=== PATIENT | female | born 1995 | race Caucasian/White ===

== ENCOUNTER 2023-10-14 05:37 | Observation (INO) | payer OTHER ==
[2023-10-14] MEDS ORDERED: Sodium Chloride 0.9% 2.5 ML Syringe FLUSH PRN (06:00)
[2023-10-14] MEDS ORDERED: Sodium Chloride 0.9% 10 ML Syringe FLUSH PRN (06:00)
[2023-10-14] MEDS ORDERED: Sodium Chloride 0.9% 20 ML SDV IV PRN (06:00)
[2023-10-14] MEDS: Lactated Ringers 1,000 ML IV SCH ×4 (06:14→19:09)
[2023-10-14 06:45] LABS: BASOPHILS ABSOLUTE AUTO 0.05 K/uL (0.00-0.20); BASOPHILS PERCENT AUTO 0.5 % (0.0-1.0); EOSINOPHILS ABSOLUTE AUTO 0.06 K/uL (0.00-0.45); EOSINOPHILS PERCENT AUTO 0.6 % (0.0-6.0); HEMATOCRIT 33.5 % (37.0-47.0); HEMOGLOBIN 11.7 g/dL (12.0-16.0); IMMATURE GRAN ABSOLUTE AUTO 0.33 K/uL (0.00-0.05); IMMATURE GRAN PERCENT AUTO 3.5 % (0.0-0.4); LYMPHOCYTES ABSOLUTE AUTO 2.04 K/uL (1.00-4.80); LYMPHOCYTES PERCENT AUTO 21.4 % (24.0-44.0); MEAN CORPUSCULAR HGB CONC 34.9 g/dL (32.0-36.0); MEAN CORPUSCULAR VOLUME 88.6 fL (83.0-99.0); MEAN PLATELET VOLUME 10.1 fL (9.4-12.3); MONOCYTES ABSOLUTE AUTO 0.76 K/uL (0.00-0.80); NEUTROPHILS ABSOLUTE AUTO 6.31 K/uL (1.80-7.70); PLATELET COUNT,PLT 212 K/uL (150-400); RED BLOOD CELL COUNT 3.78 M/uL (4.10-5.30); WHITE BLOOD CELL COUNT,WBC 9.55 K/uL (3.9-11.3)
[2023-10-14] MEDS ORDERED: Betamethasone Acetate/Betamethasone Sod Phosphate 6 MG/1 ML MDV IM ONE (06:50)
[2023-10-14 07:10] LABS: INR < 0.93 (0.86-1.11)
[2023-10-14 07:54] LABS: BILIRUBIN,URINE NEGATIVE (NEGATIVE); COLOR,URINE YELLOW; GLUCOSE,URINE NEGATIVE (NEGATIVE); KETONES,URINE NEGATIVE (NEGATIVE); LEUKOCYTE ESTERASE,URINE NEGATIVE (NEGATIVE); NITRITE,URINE NEGATIVE (NEGATIVE); OCCULT BLOOD,URINE LARGE (NEGATIVE); PROTEIN,URINE NEGATIVE (NEGATIVE); UROBILINOGEN,URINE 0.2 EU/dL (<2.0)
[2023-10-14 07:56] LABS: APPEARANCE,URINE HAZY
[2023-10-14 08:33] LABS: CANDIDA DNA PROBE NEGATIVE (NEGATIVE); GARDNERELLA DNA PROBE POSITIVE (NEGATIVE); TRICHOMONAS DNA PROBE NEGATIVE (NEGATIVE)
[2023-10-14 09:12] LABS: C. TRACHOMATIS BY PCR NOT DETECTED; N. GONORRHOEAE BY PCR NOT DETECTED
[2023-10-14] MEDS: Clindamycin HCl 150 MG Cap PO SCH ×2 (11:01→19:00)
[2023-10-14] MEDS ORDERED: hydrOXYzine Pamoate 25 MG Cap PO PRN (19:02)
[2023-10-14] MEDS ORDERED: Lactated Ringers 1,000 ML IV SCH (19:15)
[2023-10-15] MEDS: Lactated Ringers 1,000 ML IV SCH (01:45)
[2023-10-15] MEDS: Clindamycin HCl 150 MG Cap PO SCH ×2 (02:44→10:31)
[2023-10-15 05:50] LABS: HEMOGLOBIN 10.9 g/dL (12.0-16.0); MEAN CORPUSCULAR HEMOGLOBIN 31.2 pg (28.0-32.0); MEAN CORPUSCULAR HGB CONC 35.2 g/dL (32.0-36.0); MEAN CORPUSCULAR VOLUME 88.8 fL (83.0-99.0); MEAN PLATELET VOLUME 10.3 fL (9.4-12.3); PLATELET COUNT,PLT 198 K/uL (150-400); RED BLOOD CELL COUNT 3.49 M/uL (4.10-5.30); WHITE BLOOD CELL COUNT,WBC 12.36 K/uL (3.9-11.3)
[2023-10-15 06:01] LABS: FIBRINOGEN 393 mg/dL (187-446); INR < 0.93 (0.86-1.11); PTT,PARTIAL THROMBOPLSTIN TIME 28.3 SEC (23.9-30.7)
[2023-10-15 06:32] LABS: GROUP B STREP BY PCR NEGATIVE (NEGATIVE)
[2023-10-15] MEDS ORDERED: Betamethasone Acetate/Betamethasone Sod Phosphate 6 MG/1 ML MDV IM ONE (09:06)
== END 2023-10-15 10:35 | disposition home or self-care (01) ==
LOC: MW.OBCHECK 05:37 → MW.OB 05:38 → MW.OBCHECK 15:00
PROVIDERS: ADMIT Obstetrics & Gynecology; ATTEND Obstetrics & Gynecology
DX: O46.93 Antepartum hemorrhage, unspecified, third trimester (principal); O99.343 Other mental disorders complicating pregnancy, third trimester; F41.9 Anxiety disorder, unspecified; F32.A Depression, unspecified; Z3A.34 34 weeks gestation of pregnancy; Z79.899 Other long term (current) drug therapy
CPT/HCPCS: 36415; 59025; 76815; 81003; 85025; 85027; 85384; 85610; 85730; 86850; 86900; 86901; 87480; 87491; 87510; 87591; 87653; 87660; A9270; J0702; J7120

== ENCOUNTER 2023-11-27 20:04 | Inpatient (IN) | payer OTHER ==
[2023-11-27] MEDS ORDERED: Water For Irrigation,Sterile 1,000 ML Container IRR PRN (20:13)
[2023-11-27] MEDS ORDERED: Sodium Chloride 0.9% 10 ML Syringe FLUSH PRN (20:13)
[2023-11-27] MEDS ORDERED: Sodium Chloride 0.9% 2.5 ML Syringe FLUSH PRN (20:13)
[2023-11-27] MEDS ORDERED: Methylergonovine 0.2 MG/1 ML Amp IM PRN (20:13)
[2023-11-27] MEDS ORDERED: Tranexamic Acid IN NACL,ISO-OS 1,000 MG in Premix Bag 1 BAG IV PRN ×2 (20:13)
[2023-11-27] MEDS ORDERED: Sodium Chloride 0.9% 20 ML SDV IV PRN (20:13)
[2023-11-27] MEDS ORDERED: Misoprostol 25 MCG (1/4 of 100 MCG) Tab VAG PRN ×2 (20:13)
[2023-11-27] MEDS ORDERED: Misoprostol 200 MCG Tab PO PRN (20:13)
[2023-11-27] MEDS ORDERED: Lidocaine 1% 50 ML MDV INJECT PRN (20:13)
[2023-11-27] MEDS ORDERED: Terbutaline 1 MG/ML SDV SUBCUT PRN (20:13)
[2023-11-27] MEDS ORDERED: Carboprost Tromethamine 250 MCG/1 mL Vial IM PRN (20:13)
[2023-11-27] MEDS ORDERED: Oxytocin/0.9 % Sodium Chloride 30 UNIT/500 ML BAG IV SCH ×2 (20:15)
[2023-11-27 21:17] LABS: HEMATOCRIT 35.1 % (37.0-47.0); HEMOGLOBIN 12.3 g/dL (12.0-16.0); MEAN CORPUSCULAR VOLUME 88.4 fL (83.0-99.0); MEAN PLATELET VOLUME 10.5 fL (9.4-12.3); PLATELET COUNT,PLT 217 K/uL (150-400); RED BLOOD CELL COUNT 3.97 M/uL (4.10-5.30); WHITE BLOOD CELL COUNT,WBC 10.04 K/uL (3.9-11.3)
[2023-11-27] MEDS ORDERED: ePHEDrine 50 MG/ML SDV IVPUSH PRN ×2 (22:46)
[2023-11-27] MEDS ORDERED: Ropivacaine HCl/PF 400 MG in Premix Bag 1 BAG EPIDUR SCH (23:00)
[2023-11-28] MEDS: Nalbuphine 10 MG/0.5 ML Syringe IVPUSH PRN ×2 (02:49→06:18)
[2023-11-28] MEDS: Lactated Ringers 1,000 ML IV SCH ×2 (03:49→17:55)
[2023-11-28] MEDS: Ondansetron 4 MG/2 ML SDV IVPUSH PRN ×2 (05:22→11:43)
[2023-11-28] MEDS ORDERED: fentaNYL 100 MCG/2 ML SDV ONE ×4 (13:10→23:01)
[2023-11-28] MEDS ORDERED: Bupivacaine 0.25% 10 ML SDV ONE (13:10)
[2023-11-28] MEDS ORDERED: Azithromycin 500 MG in Sodium Chloride 0.9% 250 ML IV ONE (18:15)
[2023-11-28] MEDS ORDERED: Sodium Chloride 0.9% 2.5 ML Syringe FLUSH PRN (18:15)
[2023-11-28] MEDS ORDERED: Oxytocin/0.9 % Sodium Chloride 30 UNIT/500 ML BAG IV SCH (18:15)
[2023-11-28] MEDS ORDERED: Sodium Chloride 0.9% 10 ML Syringe FLUSH PRN (18:15)
[2023-11-28] MEDS ORDERED: Lactated Ringers 1,000 ML IV SCH (18:15)
[2023-11-28] MEDS ORDERED: ceFAZolin 2 GM in Sodium Chloride 0.9% 50 ML IV ONE (18:15)
[2023-11-28] MEDS ORDERED: Sodium Chloride 0.9% 20 ML SDV IV PRN (18:15)
[2023-11-28] MEDS ORDERED: Bupivacaine 0.5% 10 ML SDV ONE (18:22)
[2023-11-28] MEDS ORDERED: Ondansetron 4 MG/2 ML SDV ONE ×4 (18:23→23:42)
[2023-11-28] MEDS ORDERED: ceFAZolin 1 GM Vial ONE ×2 (18:26→22:30)
[2023-11-28] MEDS ORDERED: Ropivacaine 0.5% 5 MG/ML 30 ML SDV ONE (18:26)
[2023-11-28] MEDS ORDERED: Dexamethasone 4 MG/ML 5 ML MDV ONE (18:26)
[2023-11-28] MEDS ORDERED: Ketorolac 30 MG/ML SDV ONE (18:26)
[2023-11-28] MEDS ORDERED: dexmedeTOMIDine HCl 200 MCG/2 ML SDV ONE (18:26)
[2023-11-28] MEDS ORDERED: Water For Injection, Sterile 20 ML ONE (18:26)
[2023-11-28] MEDS ORDERED: Azithromycin 500 MG Vial ONE (18:31)
[2023-11-28] MEDS ORDERED: Morphine PF 10 MG/10 ML SDV ONE (18:36)
[2023-11-28] MEDS ORDERED: Phenylephrine HCl 0.5 MG/5 ML AMP ONE ×5 (18:46→22:56)
[2023-11-28] MEDS ORDERED: Oxytocin 10 Units/1 ML SDV ONE ×2 (18:56→20:19)
[2023-11-28] MEDS ORDERED: fentaNYL 50 MCG/ML SDV IVPUSH PRN (19:08)
[2023-11-28] MEDS ORDERED: fentaNYL 100 MCG/2 ML SDV IVPUSH PRN (19:08)
[2023-11-28] MEDS ORDERED: Naloxone 0.4 MG/ML SDV IVPUSH PRN (19:08)
[2023-11-28] MEDS ORDERED: Acetaminophen/oxyCODONE 325-5 MG Tab PO PRN (19:08)
[2023-11-28] MEDS ORDERED: Morphine 2 MG/ML SYRINGE IVPUSH PRN (19:08)
[2023-11-28] MEDS ORDERED: Metoclopramide 10 MG/2 ML SDV IVPUSH PRN (19:08)
[2023-11-28] MEDS ORDERED: Ondansetron 4 MG/2 ML SDV IVPUSH PRN ×2 (19:08)
[2023-11-28] MEDS ORDERED: droPERidol 5 MG/2 ML SDV IVPUSH PRN (19:08)
[2023-11-28] MEDS ORDERED: ePHEDrine 50 MG/ML SDV IVPUSH PRN (19:08)
[2023-11-28] MEDS ORDERED: Albuterol 0.083% 2.5 MG/3 ML Neb Soln NEB PRN (19:08)
[2023-11-28] MEDS ORDERED: HYDROmorphone 1 MG/ML Syringe IVPUSH PRN (19:08)
[2023-11-28] MEDS ORDERED: diphenhydrAMINE 50 MG/ML SDV IVPUSH PRN (19:08)
[2023-11-28] MEDS ORDERED: Ketorolac 30 MG/ML SDV IVPUSH SCH (20:00)
[2023-11-28] MEDS: Phenylephrine HCl 0.5 MG/5 ML AMP IVPUSH PRN ×2 (20:15→20:46)
[2023-11-28] MEDS ORDERED: Tranexamic Acid 1,000 MG/10 ML Vial ONE ×2 (20:19→20:49)
[2023-11-28] MEDS ORDERED: Calcium Chloride 10% 1 GM/10 ML Syringe ONE ×2 (20:19→23:09)
[2023-11-28] MEDS ORDERED: ePHEDrine 50 MG/ML SDV ONE (20:19)
[2023-11-28] MEDS ORDERED: Phenylephrine 1% 10 MG/ML SDV ONE (20:49)
[2023-11-28] MEDS ORDERED: Carboprost Tromethamine 250 MCG/1 mL Vial IM PRN (20:56)
[2023-11-28 21:18] LABS: HEMATOCRIT 22.2 % (37.0-47.0); HEMOGLOBIN 8.1 g/dL (12.0-16.0); MEAN CORPUSCULAR HEMOGLOBIN 31.6 pg (28.0-32.0); MEAN CORPUSCULAR HGB CONC 36.5 g/dL (32.0-36.0); MEAN CORPUSCULAR VOLUME 86.7 fL (83.0-99.0); MEAN PLATELET VOLUME 10.4 fL (9.4-12.3); PLATELET COUNT,PLT 221 K/uL (150-400); RED BLOOD CELL COUNT 2.56 M/uL (4.10-5.30); WHITE BLOOD CELL COUNT,WBC 21.23 K/uL (3.9-11.3)
[2023-11-28] MEDS ORDERED: Misoprostol 200 MCG Tab RECTAL PRN (21:26)
[2023-11-28] MEDS ORDERED: Calcium Gluconate 10% 1 GM/10 ML SDV ONE (21:31)
[2023-11-28 21:40] LABS: A/G RATIO 0.8 (0.9-1.6); ALBUMIN 1.6 g/dL (3.4-5.0); BILIRUBIN TOTAL 0.4 mg/dL (0.2-1.0); CARBON DIOXIDE,CO2 23.1 mmol/L (21.0-32.0); CREATININE 0.8 mg/dL (0.6-1.0); EST CRCL DRUG DOSING (CG) 87.38 mL/min; POTASSIUM,K 4.1 mmol/L (3.5-5.1); PROTEIN TOTAL,TP 3.6 g/dL (6.4-8.2)
[2023-11-28] MEDS ORDERED: Oxytocin/0.9 % Sodium Chloride 30 UNIT/500 ML BAG ONE (21:41)
[2023-11-28] MEDS ORDERED: Acetaminophen 1,000 MG in Premix Bag 1 BAG IV SCH (22:00)
[2023-11-28 22:01] LABS: PTT,PARTIAL THROMBOPLSTIN TIME 29.9 SEC (23.9-30.7)
[2023-11-28] MEDS ORDERED: Rocuronium Bromide 50 MG/5 ML Syringe ONE ×2 (22:05→23:00)
[2023-11-28] MEDS ORDERED: Propofol 200 MG/20 ML SDV ONE ×2 (22:06→23:29)
[2023-11-28] MEDS ORDERED: propofoL 50 ML ONE (22:09)
[2023-11-28] MEDS ORDERED: Sugammadex Sodium 200 MG/2 ML VIAL ONE (22:12)
[2023-11-28] MEDS ORDERED: Albumin 5% 250 ML ONE (22:37)
[2023-11-28] MEDS ORDERED: Methylergonovine 0.2 MG/1 ML Amp ONE (23:10)
[2023-11-29] MEDS ORDERED: Metoclopramide 10 MG/2 ML SDV ONE (00:12)
[2023-11-29] MEDS ORDERED: diphenhydrAMINE 50 MG/ML SDV IVPUSH PRN (01:15)
[2023-11-29] MEDS ORDERED: Lanolin 100% Cream 7 GM Tube TOP PRN (01:15)
[2023-11-29] MEDS ORDERED: Temazepam 15 MG Cap PO PRN (01:15)
[2023-11-29] MEDS ORDERED: Pantoprazole 40 MG in Sodium Chloride 0.9% 10 ML IVPUSH SCH (01:15)
[2023-11-29] MEDS ORDERED: Famotidine 20 MG Tab PO PRN (01:15)
[2023-11-29] MEDS ORDERED: Bisacodyl 10 MG Supp RECTAL PRN (01:15)
[2023-11-29] MEDS ORDERED: Acetaminophen/oxyCODONE 325-5 MG Tab PO PRN (01:15)
[2023-11-29] MEDS ORDERED: Ondansetron 4 MG/2 ML SDV IVPUSH PRN (01:15)
[2023-11-29 02:18] LABS: HEMATOCRIT 27.8 % (37.0-47.0); HEMOGLOBIN 10.2 g/dL (12.0-16.0); MEAN CORPUSCULAR HEMOGLOBIN 31.2 pg (28.0-32.0); MEAN CORPUSCULAR HGB CONC 36.7 g/dL (32.0-36.0); PLATELET COUNT,PLT 55 K/uL (150-400); RED BLOOD CELL COUNT 3.27 M/uL (4.10-5.30); WHITE BLOOD CELL COUNT,WBC 16.06 K/uL (3.9-11.3)
[2023-11-29 02:48] LABS: INR 1.11 (0.86-1.11); PTT,PARTIAL THROMBOPLSTIN TIME 31.4 SEC (23.9-30.7)
[2023-11-29] MEDS: Lactated Ringers 1,000 ML IV SCH ×2 (03:10→11:39)
[2023-11-29] MEDS ORDERED: Melatonin 3 MG Tab PO PRN (03:34)
[2023-11-29] MEDS ORDERED: Midazolam 1 MG/ML 2 ML SDV IVPUSH PRN (03:36)
[2023-11-29] MEDS: Ferrous Sulfate 325 MG Tab PO SCH ×2 (06:12→15:54)
[2023-11-29] MEDS: Simethicone 80 MG Tab.Chew PO SCH ×3 (06:12→20:35)
[2023-11-29] MEDS: Pantoprazole 40 MG in Sodium Chloride 0.9% 10 ML IVPUSH SCH ×2 (06:21→07:56)
[2023-11-29] MEDS ORDERED: ceFAZolin 2 GM in Sodium Chloride 0.9% 50 ML IV ONE (07:00)
[2023-11-29 07:08] LABS: BASOPHILS ABSOLUTE AUTO 0.03 K/uL (0.00-0.20); BASOPHILS PERCENT AUTO 0.2 % (0.0-1.0); IMMATURE GRAN ABSOLUTE AUTO 0.24 K/uL (0.00-0.05); IMMATURE GRAN PERCENT AUTO 1.7 % (0.0-0.4); LYMPHOCYTES ABSOLUTE AUTO 1.52 K/uL (1.00-4.80); LYMPHOCYTES PERCENT AUTO 10.5 % (24.0-44.0); MEAN PLATELET VOLUME 10.9 fL (9.4-12.3); MONOCYTES PERCENT AUTO 8.3 % (0.0-8.0); NEUTROPHILS ABSOLUTE AUTO 11.43 K/uL (1.80-7.70); NEUTROPHILS PERCENT AUTO 79.3 % (41.0-71.0); RED BLOOD CELL COUNT 2.92 M/uL (4.10-5.30); WHITE BLOOD CELL COUNT,WBC 14.42 K/uL (3.9-11.3)
[2023-11-29 08:06] LABS: HEMATOCRIT 24.5 % (37.0-47.0); HEMOGLOBIN 8.6 g/dL (12.0-16.0); MEAN CORPUSCULAR HEMOGLOBIN 28.8 pg (28.0-32.0); MEAN CORPUSCULAR HGB CONC 34.7 g/dL (32.0-36.0); MEAN CORPUSCULAR VOLUME 83.1 fL (83.0-99.0)
[2023-11-29 08:07] LABS: PLATELET COUNT,PLT 58 K/uL (150-400)
[2023-11-29] MEDS: Docusate Sodium 100 MG Cap PO SCH ×2 (09:59→20:35)
[2023-11-29] MEDS: Acetaminophen/oxyCODONE 325-5 MG Tab PO PRN ×3 (12:21→20:36)
[2023-11-29] MEDS ORDERED: Furosemide 20 MG/2 ML VIAL IVPUSH ONE (15:06)
[2023-11-30] MEDS: Acetaminophen/oxyCODONE 325-5 MG Tab PO PRN ×6 (00:55→23:56)
[2023-11-30] MEDS: Simethicone 80 MG Tab.Chew PO SCH ×4 (04:20→21:55)
[2023-11-30] MEDS: Ferrous Sulfate 325 MG Tab PO SCH ×3 (05:51→21:55)
[2023-11-30 08:11] LABS: HEMATOCRIT 22.3 % (37.0-47.0); HEMOGLOBIN 8.2 g/dL (12.0-16.0); MEAN CORPUSCULAR HEMOGLOBIN 30.8 pg (28.0-32.0); MEAN CORPUSCULAR HGB CONC 36.8 g/dL (32.0-36.0); MEAN CORPUSCULAR VOLUME 83.8 fL (83.0-99.0); MEAN PLATELET VOLUME 10.2 fL (9.4-12.3); PLATELET COUNT,PLT 70 K/uL (150-400); RED BLOOD CELL COUNT 2.66 M/uL (4.10-5.30)
[2023-11-30] MEDS: Docusate Sodium 100 MG Cap PO SCH ×2 (10:21→21:55)
[2023-11-30] MEDS ORDERED: Cyclobenzaprine 10 MG Tab PO PRN (11:07)
[2023-12-01] MEDS: Acetaminophen/oxyCODONE 325-5 MG Tab PO PRN ×3 (04:43→23:24)
[2023-12-01 06:32] LABS: HEMATOCRIT 24.1 % (37.0-47.0); HEMOGLOBIN 8.4 g/dL (12.0-16.0); MEAN CORPUSCULAR HEMOGLOBIN 31.1 pg (28.0-32.0); MEAN CORPUSCULAR HGB CONC 34.9 g/dL (32.0-36.0); MEAN CORPUSCULAR VOLUME 89.3 fL (83.0-99.0); MEAN PLATELET VOLUME 10.1 fL (9.4-12.3); PLATELET COUNT,PLT 93 K/uL (150-400); WHITE BLOOD CELL COUNT,WBC 13.84 K/uL (3.9-11.3)
[2023-12-01] MEDS: Docusate Sodium 100 MG Cap PO SCH ×2 (08:38→21:17)
[2023-12-01] MEDS: Simethicone 80 MG Tab.Chew PO SCH ×4 (10:08→21:18)
[2023-12-01] MEDS: Ferrous Sulfate 325 MG Tab PO SCH ×4 (10:14→21:17)
[2023-12-01] MEDS: Pantoprazole 40 MG in Sodium Chloride 0.9% 10 ML IVPUSH SCH (19:45)
[2023-12-02] MEDS: Ferrous Sulfate 325 MG Tab PO SCH (05:08)
[2023-12-02] MEDS: Simethicone 80 MG Tab.Chew PO SCH ×2 (05:09→10:09)
[2023-12-02 06:17] LABS: HEMATOCRIT 25.6 % (37.0-47.0); HEMOGLOBIN 8.6 g/dL (12.0-16.0); MEAN CORPUSCULAR HEMOGLOBIN 30.8 pg (28.0-32.0); MEAN CORPUSCULAR HGB CONC 33.6 g/dL (32.0-36.0); MEAN CORPUSCULAR VOLUME 91.8 fL (83.0-99.0); NRBC ABSOLUTE 0.03 K/uL (0.00-0.02); NRBC PERCENT 0.3 /100WBC (0.0-0.2); PLATELET COUNT,PLT 153 K/uL (150-400); RED BLOOD CELL COUNT 2.79 M/uL (4.10-5.30); WHITE BLOOD CELL COUNT,WBC 9.84 K/uL (3.9-11.3)
[2023-12-02] MEDS: Pantoprazole 40 MG in Sodium Chloride 0.9% 10 ML IVPUSH SCH (07:36)
[2023-12-02] MEDS: Acetaminophen/oxyCODONE 325-5 MG Tab PO PRN (08:32)
[2023-12-02] MEDS: Docusate Sodium 100 MG Cap PO SCH (08:32)
== END 2023-12-02 13:51 | disposition home or self-care (01) | DRG 787 ==
LOC: MW.OBCHECK 20:04 → MW.OB 20:13 → OBSVTOIN 11-28 18:15 → MW.ICU 11-29 01:03 → MW.OB 11-29 10:59
PROVIDERS: ADMIT Obstetrics & Gynecology; ATTEND Obstetrics & Gynecology
PROC: 0W3R7ZZ Control Bleeding in Genitourinary Tract, Via Natural or Artificial Opening (ICD-10-PCS; 2023-11-28)
PROC: 0UT90ZL Resection of Uterus, Supracervical, Open Approach (ICD-10-PCS; 2023-11-28)
PROC: 3E0P7VZ Introduction of Hormone into Female Reproductive, Via Natural or Artificial Opening (ICD-10-PCS; 2023-11-28)
PROC: 3E033VJ Introduction of Other Hormone into Peripheral Vein, Percutaneous Approach (ICD-10-PCS; 2023-11-28)
PROC: 30233L1 Transfusion of Nonautologous Fresh Plasma into Peripheral Vein, Percutaneous Approach (ICD-10-PCS; 2023-11-28)
PROC: 30233N1 Transfusion of Nonautologous Red Blood Cells into Peripheral Vein, Percutaneous Approach (ICD-10-PCS; 2023-11-28)
PROC: 30233K1 Transfusion of Nonautologous Frozen Plasma into Peripheral Vein, Percutaneous Approach (ICD-10-PCS; 2023-11-28)
PROC: 3E033XZ Introduction of Vasopressor into Peripheral Vein, Percutaneous Approach (ICD-10-PCS; 2023-11-28)
PROC: 3E0R3BZ Introduction of Anesthetic Agent into Spinal Canal, Percutaneous Approach (ICD-10-PCS; 2023-11-28)
PROC: 00HU33Z Insertion of Infusion Device into Spinal Canal, Percutaneous Approach (ICD-10-PCS; 2023-11-28)
PROC: 10D00Z1 Extraction of Products of Conception, Low, Open Approach (ICD-10-PCS; principal; 2023-11-28 18:50)
PROC: 30233L1 Transfusion of Nonautologous Fresh Plasma into Peripheral Vein, Percutaneous Approach (ICD-10-PCS; 2023-11-29)
PROC: 30233N1 Transfusion of Nonautologous Red Blood Cells into Peripheral Vein, Percutaneous Approach (ICD-10-PCS; 2023-11-29)
DX: O48.0 Post-term pregnancy (principal); O72.1 Other immediate postpartum hemorrhage; O99.12 Other diseases of the blood and blood-forming organs and certain disorders involving the immune mechanism complicating childbirth; O72.3 Postpartum coagulation defects; D69.6 Thrombocytopenia, unspecified; O99.03 Anemia complicating the puerperium; D50.0 Iron deficiency anemia secondary to blood loss (chronic); O62.1 Secondary uterine inertia; O32.4XX0 Maternal care for high head at term, not applicable or unspecified; O26.53 Maternal hypotension syndrome, third trimester; Z3A.40 40 weeks gestation of pregnancy; Z37.0 Single live birth
CPT/HCPCS: 01962; 01967; 01968; 36415; 36430; 51702; 59899; 64488; 80053; 85025; 85027; 85384; 85610; 85730; 86592; 86850; 86900; 86901; 86920; A9270-GY; C9113; J0131; J0456; J0612; J0665; J0690; J1100; J1885; J1940; J2210; J2274; J2300; J2371; J2405; J2590; J2704; J2765; J2795; J3010; J3490; J7120; P9016; P9017; P9045

== ENCOUNTER 2023-12-17 22:18 | Observation (INO) | payer OTHER ==
[2023-12-17] MEDS ORDERED: Sodium Chloride 0.9% 2.5 ML Syringe FLUSH PRN (22:27)
[2023-12-17] MEDS ORDERED: Sodium Chloride 0.9% 10 ML Syringe FLUSH PRN (22:27)
[2023-12-17 22:42] LABS: BASOPHILS ABSOLUTE AUTO 0.03 K/uL (0.00-0.20); BASOPHILS PERCENT AUTO 0.4 % (0.0-1.0); EOSINOPHILS ABSOLUTE AUTO 0.14 K/uL (0.00-0.45); EOSINOPHILS PERCENT AUTO 1.9 % (0.0-6.0); HEMATOCRIT 32.1 % (37.0-47.0); HEMOGLOBIN 10.7 g/dL (12.0-16.0); IMMATURE GRAN ABSOLUTE AUTO 0.03 K/uL (0.00-0.05); IMMATURE GRAN PERCENT AUTO 0.4 % (0.0-0.4); LYMPHOCYTES ABSOLUTE AUTO 3.05 K/uL (1.00-4.80); LYMPHOCYTES PERCENT AUTO 40.7 % (24.0-44.0); MEAN CORPUSCULAR HEMOGLOBIN 31.1 pg (28.0-32.0); MEAN CORPUSCULAR HGB CONC 33.3 g/dL (32.0-36.0); MEAN CORPUSCULAR VOLUME 93.3 fL (83.0-99.0); MEAN PLATELET VOLUME 9.2 fL (9.4-12.3); NEUTROPHILS ABSOLUTE AUTO 3.65 K/uL (1.80-7.70); NEUTROPHILS PERCENT AUTO 48.6 % (41.0-71.0); PLATELET COUNT,PLT 471 K/uL (150-400); RED BLOOD CELL COUNT 3.44 M/uL (4.10-5.30)
[2023-12-17 22:56] LABS: INR 0.99 (0.86-1.11); PTT,PARTIAL THROMBOPLSTIN TIME 28.7 SEC (23.9-30.7)
[2023-12-17 23:03] LABS: ALBUMIN 3.2 g/dL (3.4-5.0); BILIRUBIN TOTAL 0.1 mg/dL (0.2-1.0); CALCIUM 8.7 mg/dL (8.5-10.1); CARBON DIOXIDE,CO2 24.5 mmol/L (21.0-32.0); EST CRCL DRUG DOSING (CG) 69.9 mL/min; POTASSIUM,K 3.8 mmol/L (3.5-5.1); PROTEIN TOTAL,TP 6.3 g/dL (6.4-8.2)
[2023-12-17] MEDS ORDERED: Ferric Subsulfate Topical Soln 8 GM (8 ML) Bottle ONE (23:14)
[2023-12-17] MEDS ORDERED: Tranexamic Acid 1,000 MG in Sodium Chloride 0.9% 100 ML IV ONE (23:36)
[2023-12-17] MEDS ORDERED: Sodium Chloride 0.9% 1,000 ML IV STA (23:43)
[2023-12-17] MEDS ORDERED: Promethazine 25 MG/ML SDV IM PRN (23:49)
[2023-12-17] MEDS ORDERED: Morphine 4 MG/ML Syringe IVPUSH PRN (23:49)
[2023-12-17] MEDS ORDERED: Acetaminophen/oxyCODONE 325-5 MG Tab PO PRN (23:49)
[2023-12-17] MEDS ORDERED: Ondansetron 4 MG/2 ML SDV IVPUSH PRN (23:49)
[2023-12-17 23:59] LABS: BASOPHILS ABSOLUTE AUTO 0.03 K/uL (0.00-0.20); BASOPHILS PERCENT AUTO 0.4 % (0.0-1.0); EOSINOPHILS ABSOLUTE AUTO 0.11 K/uL (0.00-0.45); EOSINOPHILS PERCENT AUTO 1.4 % (0.0-6.0); HEMATOCRIT 26.2 % (37.0-47.0); HEMOGLOBIN 8.7 g/dL (12.0-16.0); IMMATURE GRAN ABSOLUTE AUTO 0.03 K/uL (0.00-0.05); IMMATURE GRAN PERCENT AUTO 0.4 % (0.0-0.4); LYMPHOCYTES ABSOLUTE AUTO 2.61 K/uL (1.00-4.80); MEAN CORPUSCULAR HGB CONC 33.2 g/dL (32.0-36.0); MEAN CORPUSCULAR VOLUME 93.2 fL (83.0-99.0); MEAN PLATELET VOLUME 9.4 fL (9.4-12.3); MONOCYTES ABSOLUTE AUTO 0.64 K/uL (0.00-0.80); MONOCYTES PERCENT AUTO 8.1 % (0.0-8.0); NEUTROPHILS PERCENT AUTO 56.7 % (41.0-71.0); PLATELET COUNT,PLT 367 K/uL (150-400); RED BLOOD CELL COUNT 2.81 M/uL (4.10-5.30); WHITE BLOOD CELL COUNT,WBC 7.92 K/uL (3.9-11.3)
[2023-12-18] MEDS: Lactated Ringers 1,000 ML IV SCH ×2 (00:07→09:11)
[2023-12-18 00:28] LABS: INR 1.05 (0.86-1.11); PTT,PARTIAL THROMBOPLSTIN TIME 25.4 SEC (23.9-30.7)
[2023-12-18 06:05] LABS: BASOPHILS ABSOLUTE AUTO 0.03 K/uL (0.00-0.20); BASOPHILS PERCENT AUTO 0.5 % (0.0-1.0); EOSINOPHILS ABSOLUTE AUTO 0.07 K/uL (0.00-0.45); EOSINOPHILS PERCENT AUTO 1.1 % (0.0-6.0); HEMATOCRIT 24.4 % (37.0-47.0); IMMATURE GRAN ABSOLUTE AUTO 0.02 K/uL (0.00-0.05); IMMATURE GRAN PERCENT AUTO 0.3 % (0.0-0.4); LYMPHOCYTES ABSOLUTE AUTO 1.71 K/uL (1.00-4.80); LYMPHOCYTES PERCENT AUTO 27.1 % (24.0-44.0); MEAN CORPUSCULAR HEMOGLOBIN 30.5 pg (28.0-32.0); MEAN CORPUSCULAR HGB CONC 32.8 g/dL (32.0-36.0); MEAN CORPUSCULAR VOLUME 93.1 fL (83.0-99.0); MEAN PLATELET VOLUME 9.5 fL (9.4-12.3); MONOCYTES ABSOLUTE AUTO 0.34 K/uL (0.00-0.80); MONOCYTES PERCENT AUTO 5.4 % (0.0-8.0); NEUTROPHILS ABSOLUTE AUTO 4.15 K/uL (1.80-7.70); NEUTROPHILS PERCENT AUTO 65.6 % (41.0-71.0); PLATELET COUNT,PLT 314 K/uL (150-400); RED BLOOD CELL COUNT 2.62 M/uL (4.10-5.30); WHITE BLOOD CELL COUNT,WBC 6.32 K/uL (3.9-11.3)
[2023-12-18 06:27] LABS: CALCIUM 8.1 mg/dL (8.5-10.1); CARBON DIOXIDE,CO2 24.9 mmol/L (21.0-32.0); CREATININE 0.6 mg/dL (0.6-1.0); EST CRCL DRUG DOSING (CG) 116.5 mL/min; POTASSIUM,K 4.1 mmol/L (3.5-5.1)
[2023-12-18] MEDS ORDERED: Docusate Sodium 100 MG Cap PO SCH (09:00)
[2023-12-18] MEDS ORDERED: propofoL 50 ML ONE ×4 (12:10→14:52)
[2023-12-18] MEDS ORDERED: fentaNYL 100 MCG/2 ML SDV ONE ×2 (12:11→12:44)
[2023-12-18] MEDS ORDERED: Midazolam 1 MG/ML 2 ML SDV ONE (12:12)
[2023-12-18] MEDS ORDERED: ceFAZolin 1 GM Vial ONE (12:26)
[2023-12-18] MEDS ORDERED: Tranexamic Acid 1,000 MG/10 ML Vial ONE (12:26)
[2023-12-18] MEDS ORDERED: Calcium Chloride 10% 1 GM/10 ML Syringe ONE ×2 (13:14→14:07)
[2023-12-18 13:23] LABS: BASOPHILS ABSOLUTE AUTO 0.02 K/uL (0.00-0.20); BASOPHILS PERCENT AUTO 0.4 % (0.0-1.0); EOSINOPHILS ABSOLUTE AUTO 0.08 K/uL (0.00-0.45); EOSINOPHILS PERCENT AUTO 1.6 % (0.0-6.0); HEMATOCRIT 25.6 % (37.0-47.0); HEMOGLOBIN 8.4 g/dL (12.0-16.0); IMMATURE GRAN ABSOLUTE AUTO 0.03 K/uL (0.00-0.05); IMMATURE GRAN PERCENT AUTO 0.6 % (0.0-0.4); INR 1.16 (0.86-1.11); LYMPHOCYTES ABSOLUTE AUTO 1.86 K/uL (1.00-4.80); LYMPHOCYTES PERCENT AUTO 36.7 % (24.0-44.0); MEAN CORPUSCULAR HEMOGLOBIN 30.9 pg (28.0-32.0); MEAN CORPUSCULAR HGB CONC 32.8 g/dL (32.0-36.0); MEAN CORPUSCULAR VOLUME 94.1 fL (83.0-99.0); MEAN PLATELET VOLUME 9.4 fL (9.4-12.3); MONOCYTES ABSOLUTE AUTO 0.41 K/uL (0.00-0.80); MONOCYTES PERCENT AUTO 8.1 % (0.0-8.0); NEUTROPHILS ABSOLUTE AUTO 2.67 K/uL (1.80-7.70); NEUTROPHILS PERCENT AUTO 52.6 % (41.0-71.0); PLATELET COUNT,PLT 252 K/uL (150-400); PTT,PARTIAL THROMBOPLSTIN TIME 29.2 SEC (23.9-30.7); RED BLOOD CELL COUNT 2.72 M/uL (4.10-5.30); WHITE BLOOD CELL COUNT,WBC 5.07 K/uL (3.9-11.3)
[2023-12-18 13:53] LABS: A/G RATIO 0.9 (0.9-1.6); ALBUMIN 1.7 g/dL (3.4-5.0); BILIRUBIN TOTAL 0.1 mg/dL (0.2-1.0); CALCIUM 6.8 mg/dL (8.5-10.1); CARBON DIOXIDE,CO2 24.3 mmol/L (21.0-32.0); CREATININE 0.6 mg/dL (0.6-1.0); EST CRCL DRUG DOSING (CG) 116.5 mL/min; POTASSIUM,K 4.3 mmol/L (3.5-5.1); PROTEIN TOTAL,TP 3.6 g/dL (6.4-8.2)
[2023-12-18] MEDS ORDERED: Rocuronium Bromide 50 MG/5 ML Syringe ONE (14:32)
[2023-12-18 14:56] LABS: INR 1.17 (0.86-1.11); PTT,PARTIAL THROMBOPLSTIN TIME 28.2 SEC (23.9-30.7)
[2023-12-18 15:10] LABS: HEMATOCRIT 29.4 % (37.0-47.0); HEMOGLOBIN 10.2 g/dL (12.0-16.0)
== END 2023-12-18 16:00 ==
LOC: MW.ED 22:18 → MW.OB 23:45
PROVIDERS: ADMIT Obstetrics & Gynecology; ATTEND Obstetrics & Gynecology
DX: N99.820 Postprocedural hemorrhage of a genitourinary system organ or structure following a genitourinary system procedure (principal); D64.9 Anemia, unspecified; F41.9 Anxiety disorder, unspecified; F32.A Depression, unspecified
CPT/HCPCS: 36415; 36430; 57410; 80048; 80053; 85014; 85018; 85025; 85384; 85610; 85730; 86850; 86900; 86901; 86920; 93005; 96374; 99285; J0690; J2250; J2704; J3010; J3490; J7030; J7120; P9016; P9017; 99291